=== PATIENT | female | born 1990 | race Caucasian/White ===

== ENCOUNTER 2025-05-01 22:12 | Emergency (ER) | payer OTHER ==
[~2025-05-01] VITALS: Ht 165.1 cm; Wt 85.0 kg
[2025-05-01 22:40] VITALS: BP 133/85; PULSE 73; RESP 18; TEMP 97.9; O2SAT 98
[2025-05-01 23:33] LABS: PLATELET COUNT (AUTO) 389 K/uL (150-450); RED BLOOD CELL COUNT(AUTO) 4.11 MIL/uL (4.00-5.20); RED CELL DISTRIBUTION WIDTH 14.4 % (11.5-14.5); WHITE BLOOD COUNT (AUTO) 14.9 K/uL (4.5-11.0)
[2025-05-01 23:44] LABS: CALCIUM, TOTAL 8.3 mg/dL (8.8-10.5); CREATININE 2.42 mg/dL (0.60-1.30); GLOMERULAR FILTR. RATE CALC 23.0 mL/min (>60); GLUCOSE,RANDOM 202.0 mg/dL (70-110); SODIUM SERUM 135.0 mmol/L (136-145); UREA NITROGEN, BLOOD 62.0 mg/dL (7-18)
[2025-05-01 23:59] LABS: ASPARTATE AMINOTRANSFERASE 21.0 U/L (15-37); TOTAL PROTEIN, SERUM 7.0 g/dL (6.4-8.2)
== END 2025-05-02 04:11 | disposition home or self-care (01) ==
LOC: EMS 22:52
DX: E11.649 Type 2 diabetes mellitus with hypoglycemia without coma (principal); E11.22 Type 2 diabetes mellitus with diabetic chronic kidney disease; I12.9 Hypertensive chronic kidney disease with stage 1 through stage 4 chronic kidney disease, or unspecified chronic kidney disease; N18.9 Chronic kidney disease, unspecified; Z90.710 Acquired absence of both cervix and uterus
CPT/HCPCS: 80048; 80076; 82962; 84703; 85025; 99283